=== PATIENT | female | born 1990 | race Two or more races ===

== ENCOUNTER 2020-06-29 06:34 | Inpatient (IN) | payer MEDICAID ==
[~2020-06-29] VITALS: Ht 157.5 cm; Wt 4.3 kg
[~2020-06-29 06:34] MED LIST: VALE250C
[2020-06-29] MEDS ORDERED: ACTIVATED CHARCOAL 50 GM/240 ML SOL PO ONE (07:00)
[2020-06-29] MEDS ORDERED: SODIUM CHLORIDE 0.9% 1,000 ML IV ONE ×2 (07:15→09:00)
[2020-06-29 08:12] LABS: Basophils # (auto) 0.2 10 ^3/uL (0-0.2); Basophils % (auto) 1.7 % (0.0-2.0); Eosinophils # (auto) 0.2 10 ^3/uL (0-0.8); Eosinophils % (auto) 1.8 % (0.0-7.0); Hematocrit 42.3 % (36.0-46.0); Hemoglobin 14.5 g/dL (12.2-16.2); Lymphocytes # (auto) 1.4 10 ^3/uL (0.4-5.4); Lymphocytes % (auto) 15.4 % (10.0-50.0); Mean Corpuscular Hemoglobin 33.2 pg (28.0-32.0); Mean Corpuscular Hgb Conc. 34.3 g/dL (32.0-36.0); Monocytes # (auto) 0.6 10 ^3/uL (0-1.3); Neutrophils # (auto) 6.7 10 ^3/uL (1.6-8.6); Neutrophils % (auto) 74.1 % (37.0-80.0); Nucleated Red Blood Cells % 0.3 %; Platelet Count (auto) 230 10^3/uL (140-450); Red Blood Cells 4.37 10^6/uL (4.0-5.20); Red Cell Distribution Width 12.9 % (11.8-14.3); White Blood Cell 9.1 10^3/uL (4.4-10.8)
[2020-06-29 08:15] LABS: Albumin 3.8 g/dL (3.4-5.0); Anion Gap 8 (5-15); Blood Alcohol < 3.0 mg/dL (0-5); Blood Urea Nitrogen 9 mg/dL (7-18); Calcium 8.6 mg/dL (8.5-10.1); Carbon Dioxide 23 mmol/L (21-32); Chloride 107 mmol/L (98-107); Glucose 93 mg/dL (74-106); Potassium 3.6 mmol/L (3.5-5.1); Salicylate < 1.7 mg/dL (2.8-20.0); Sodium 138 mmol/L (136-145)
[2020-06-29 08:17] LABS: Alanine Aminotransferase 95 U/L (13-56); BUN/Creatinine Ratio 17.3; GFR African American 179 mL/min; GFR Non-African American 148 mL/min
[2020-06-29 08:28] LABS: Alkaline Phosphatase 70 U/L (45-117); Aspartate Aminotransferase 37 U/L (15-37); Bilirubin, Total 0.5 mg/dL (0.2-1.0); Total Protein 7.7 g/dL (6.4-8.2)
[2020-06-29 08:30] LABS: Acetaminophen < 2.0 ug/mL (10-30)
[2020-06-29 11:26] LABS: Urine Bacteria NONE SEEN /hpf (None Seen); Urine Blood Negative /uL (Negative); Urine Mucus FEW (None Seen); Urine WBC 2 /hpf (0 - 5)
[2020-06-29 11:41] LABS: Amphetamine Screen, Urine NEGATIVE (NEGATIVE); Barbiturate Scree,Urine NEGATIVE (NEGATIVE); Benzodiazephine Screen, Urine NEGATIVE (NEGATIVE); Cannabinoid Screen, Urine POSITIVE (NEGATIVE); Cocaine Screen, Urine NEGATIVE (NEGATIVE); Opiate Scree,Urine NEGATIVE (NEGATIVE); Phencyclidine Screen, Urine NEGATIVE (NEGATIVE)
[2020-06-30] MEDS ORDERED: ALUM & MAG HYDROX-SIMETH LIQ(MAALOX) 30 ML PO PRN (11:30)
[2020-06-30] MEDS ORDERED: LORazepam 0.5 MG TAB PO PRN (11:30)
[2020-06-30] MEDS ORDERED: ONDANSETRON HCL 4 MG/2 ML VIAL IV PRN (11:30)
[2020-06-30] MEDS ORDERED: TEMAZEPAM 15 MG CAP PO PRN (11:30)
[2020-06-30] MEDS ORDERED: DOCUSATE SOD 100 MG CAP PO PRN (11:30)
[2020-06-30] MEDS ORDERED: ACETAMINOPHEN 325 MG TAB PO PRN (11:30)
[2020-06-30] MEDS: SODIUM CHLORIDE 0.9% 1,000 ML IV SCH ×2 (17:51→21:30)
[2020-07-01 05:27] LABS: Basophils # (auto) 0 10 ^3/uL (0-0.2); Basophils % (auto) 0.6 % (0.0-2.0); Eosinophils # (auto) 0.2 10 ^3/uL (0-0.8); Eosinophils % (auto) 2.5 % (0.0-7.0); Hematocrit 39.4 % (36.0-46.0); Hemoglobin 13.6 g/dL (12.2-16.2); Lymphocytes % (auto) 29.2 % (10.0-50.0); Mean Corpuscular Hemoglobin 33.4 pg (28.0-32.0); Mean Corpuscular Hgb Conc. 34.6 g/dL (32.0-36.0); Mean Corpuscular Volume 96.6 fL (80.0-100.0); Monocytes # (auto) 0.6 10 ^3/uL (0-1.3); Monocytes % (auto) 9.5 % (0.0-12.0); Neutrophils # (auto) 3.9 10 ^3/uL (1.6-8.6); Neutrophils % (auto) 58.2 % (37.0-80.0); Nucleated Red Blood Cells % 0.1 %; Platelet Count (auto) 228 10^3/uL (140-450); Red Blood Cells 4.08 10^6/uL (4.0-5.20); Red Cell Distribution Width 12.6 % (11.8-14.3); White Blood Cell 6.7 10^3/uL (4.4-10.8)
[2020-07-01 05:47] LABS: BUN/Creatinine Ratio 12.3; Calcium 8.2 mg/dL (8.5-10.1); Potassium 3.4 mmol/L (3.5-5.1)
[2020-07-01 10:09] VITALS: BP 121/77
[2020-07-01] MEDS: SODIUM CHLORIDE 0.9% 1,000 ML IV SCH (10:48)
[2020-07-01] MEDS ORDERED: POTASSIUM CHL 10 Meq TABLET PO ONE (14:00)
== END 2020-07-01 14:52 | disposition home or self-care (01) | DRG 812 ==
LOC: ER 06:34 → TELE 06-30 06:35
PROVIDERS: ADMIT Hospitalist; ATTEND Internal Medicine
DX: T38.1X2A Poisoning by thyroid hormones and substitutes, intentional self-harm, initial encounter (principal); F32.9 Major depressive disorder, single episode, unspecified; E06.3 Autoimmune thyroiditis; F41.9 Anxiety disorder, unspecified; F60.3 Borderline personality disorder; Z80.1 Family history of malignant neoplasm of trachea, bronchus and lung; Z91.5 Personal history of self-harm; E28.2 Polycystic ovarian syndrome; E03.9 Hypothyroidism, unspecified; Z88.2 Allergy status to sulfonamides
CPT/HCPCS: 36415; 80048; 80053; 80307; 80320; 80329; 81001; 81025; 84443; 84479; 85025; 96360; 96361; G0378

== ENCOUNTER 2024-01-12 21:59 | Emergency (ER) | payer MEDICAID ==
[~2024-01-12] VITALS: Ht 157.5 cm; Wt 84.5 kg
[2024-01-13] MEDS ORDERED: CYCL-837 PO (02:38)
[2024-01-13] MEDS ORDERED: ACET500T58 PO (02:38)
[2024-01-13] MEDS: ACETAMINOPHEN 325 MG TAB PO ONE (02:46)
[2024-01-13 04:15] VITALS: BP 109/67; PULSE 84; RESP 19; TEMP 98.6; O2SAT 96
== END 2024-01-13 04:22 | disposition home or self-care (01) ==
LOC: ER 21:59 → EDBD 21:59 → ER 01-13 04:21
DX: S39.012A Strain of muscle, fascia and tendon of lower back, initial encounter (principal); S16.1XXA Strain of muscle, fascia and tendon at neck level, initial encounter; R51.9 Headache, unspecified; F32.A Depression, unspecified; E07.9 Disorder of thyroid, unspecified; Z88.2 Allergy status to sulfonamides; V49.9XXA Car occupant (driver) (passenger) injured in unspecified traffic accident, initial encounter; Y93.89 Activity, other specified; Y92.410 Unspecified street and highway as the place of occurrence of the external cause; Y99.8 Other external cause status
CPT/HCPCS: 81025